=== PATIENT | female | born 1950 | race Caucasian/White ===

== ENCOUNTER → 2018-10-06 08:21 | Outpatient (CLI) | payer OTHER, SELFPAY ==
--- NOTE | 2018-10-06 | DI.MG.S_ITS ---
BILATERAL DIGITAL DIAGNOSTIC MAMMOGRAM 3D/2D: 10/06/2018 CLINICAL: Short term follow up. Family history of breast cancer. Comparison is made to exams dated: 03/20/2018 mammogram, 08/07/2017 mammogram, 07/23/2017 mammogram, and 07/19/2016 mammogram - [facility]. The tissue of both breasts is heterogeneously dense. This may lower the sensitivity of mammography. There is an asymmetry in the left breast posterior depth inferior region seen on the mediolateral oblique view only which is less prominent on additional views. No other significant masses, calcifications, or other findings are seen in either breast. IMPRESSION: PROBABLY BENIGN The asymmetry in the left breast is probably benign. A follow-up mammogram in 12 months is recommended. This exam was interpreted at Station ID: [id number]. NOTE: For mammograms, a report in lay terms will be sent to the patient. Approximately 15% of breast malignancies will not be visualized mammographically. In the management of a palpable breast mass, a negative mammogram must not discourage biopsy of a clinically suspicious lesion. SUMMARY: The patient will be due for her bilateral mammogram at that time. Electronically Signed By: Paige franco/:10/06/2018 09:27:08 letter sent: Followup Recommended ACR BI-RADS Category 3: Probably benign 3343F
== END ==
PROVIDERS: PCP Nurse Practitioner Family; Visit Provider Nurse Practitioner Family
DX: R92.8 Other abnormal and inconclusive findings on diagnostic imaging of breast (principal); N64.89 Other specified disorders of breast; Z80.3 Family history of malignant neoplasm of breast
CPT/HCPCS: 77066; G0279

== ENCOUNTER → 2021-01-17 08:18 | Outpatient (CLI) | payer MEDICARE, SELFPAY ==
--- NOTE | 2021-01-17 08:26 | DIET.PN ---
Dietary Progress Note Assessment: 70y F referred to nutrition for help with dietary management of preDM and HLD, attending appt c spouse. 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, healthy fats) Usual Day: wakes 5am to have some down time before her busy day has cup or two max of decaf coffee c half and half breakfast: has difficult time figuring out good options, likes oranges, pomagranate, sometimes oatmeal breaks are too short until lunch Lunch: hummus c red pepper, tostito chips, LF string cheese, orange, if chicken will have dry on tayo's cooks all meat on grill-chicken breast and thigh on grill c big salad (lettuce, carrot, apple, broccoli, poppyseed dressing) has popcorn in canola oil milk chocolate fan occasionally rum and pepsi, 5oz white wine RD Impression: Pt is overall healthy individual who is motivated to adjust her dietary patterns to manage her preDM and HLD. Pt seems to backload her diet with little intake during the first half of the day with television watching triggering evening snacking including moderate etoh use (<8 eq/w, some mixed c Pepsi), milk chocolate. Pt has an active job on her feet and does use the elliptical at home, but feels she can be more intentional with her exercise. Pts is actively losing weight using [employer]. Nutrition Diagnosis: 1. insufficient intake dietary fiber r/t nutrition related knowledge deficit aeb pt has HLD c LDL 153 despite eating low saturated fat diet, pt is preDM c A1c 5.9, food recall shows low to moderate soluble fiber intake. 2. altered nutrition related laboratory values (A1c) r/t endocrine dysfunction aeb A1c 5.9, pt not aware of carb content of foods, pt not getting 150 min physical activity per week. Interventions: 1. Educated pt on progression towards DM including what BG and A1c are and how food and activity affect the numbers. Encouraged pt to get 150min physical activity per week and follow consistent carbohydrate diet. 2. Introduced pt to carbohydrate consistent diet with goal of most meals 30g and most snacks 15-30g CHO. Provided handout. Encouraged pt to get familiar c carb counting but to mostly follow balanced plate model. Pt instructed on counting potato, peas, corn, etoh, and sweets in carb category and to keep this 1/4 of total intake for any meal. 3. Because pt has irregular meal timing, introduced pt to the hunger scale which will help her better place meals and snacks within the day as well as curb some of the evening snacking. Encouraged pt to brew tea in the evening for a calorie free, hydrating snack. 4. Educated pt on added sugar in the diet. If pt is having a Pepsi mixed drink, she must be careful to not overconsume carbs at the same meal. Pt can consume up to 25g added sugar daily. 5. To manage her HLD and lower LDL, pt will track fiber intake and aim to get 25g per day focusing on soluble fiber foods such as beans and berries which she does enjoy. Provided pt handout to support her efforts. Monitoring/Evaluations: pt will call RD with any questions or to schedule f/u
== END ==
PROVIDERS: PCP Nurse Practitioner Family; Referring Provider Internal Medicine; Visit Provider Internal Medicine
DX: R73.03 Prediabetes (principal); E78.5 Hyperlipidemia, unspecified; Z68.22 Body mass index [BMI] 22.0-22.9, adult; Z71.3 Dietary counseling and surveillance
CPT/HCPCS: 97802

== ENCOUNTER → 2021-06-07 09:26 | Outpatient (CLI) | payer MEDICARE, SELFPAY | PROVIDERS: PCP Internal Medicine; Referring Provider Internal Medicine; Visit Provider Internal Medicine | DX: M81.0 Age-related osteoporosis without current pathological fracture (principal); Z78.0 Asymptomatic menopausal state | CPT/HCPCS: 77080 ==

== ENCOUNTER → 2021-09-23 14:46 | Outpatient (CLI) | payer MEDICARE, SELFPAY ==
--- NOTE | 2021-09-23 14:48 | DI.MG.S_ITS ---
BILATERAL DIGITAL SCREENING MAMMOGRAM 3D/2D WITH CAD: 09/23/2021 CLINICAL: Routine screening. Comparison is made to exams dated: 10/06/2018 mammogram - [facility], 07/23/2017 mammogram, and 07/19/2016 mammogram - [facility]. The tissue of both breasts is heterogeneously dense. This may lower the sensitivity of mammography. Current study was also evaluated with a Computer Aided Detection (CAD) system. No significant masses, calcifications, or other findings are seen in either breast. There has been no significant interval change. IMPRESSION: NEGATIVE There is no mammographic evidence of malignancy. A 1 year screening mammogram is recommended. This exam was interpreted at Station ID: [id number]. NOTE: For mammograms, a report in lay terms will be sent to the patient. Approximately 15% of breast malignancies will not be visualized mammographically. In the management of a palpable breast mass, a negative mammogram must not discourage biopsy of a clinically suspicious lesion. Electronically Signed By: Evonne ortiz/kim:09/25/2021 10:26:46 letter sent: Normal Exam ACR BI-RADS Category 1: Negative 3341F
== END ==
PROVIDERS: PCP Internal Medicine; Referring Provider Internal Medicine; Visit Provider Internal Medicine
DX: Z12.31 Encounter for screening mammogram for malignant neoplasm of breast (principal)
CPT/HCPCS: 77063; 77067

== ENCOUNTER → 2022-09-25 09:00 | Outpatient (CLI) | payer MEDICARE, SELFPAY ==
--- NOTE | 2022-09-25 09:02 | DI.MG.S_ITS ---
BILATERAL DIGITAL SCREENING MAMMOGRAM 3D/2D WITH CAD: 09/25/2022 CLINICAL: Routine screening. Comparison is made to exams dated: 09/23/2021 mammogram, 10/06/2018 mammogram - [facility], and 07/23/2017 mammogram - [facility]. Both breasts are heterogeneously dense, which may obscure small masses (category c / 51-75% glandular tissue). Current study was also evaluated with a Computer Aided Detection (CAD) system. No significant masses, calcifications, or other findings are seen in either breast. There has been no significant interval change. IMPRESSION: NEGATIVE There is no mammographic evidence of malignancy. A 1 year screening mammogram is recommended. Based on the Tyrer Cuzick model (a risk assessment model) the patient's lifetime risk is 5.7% and her 10 year risk is 3.9%. According to the ACR, ACS, and NCCN guidelines, an annual breast MRI exam along with mammogram is recommended if the patient's lifetime risk is 20% or greater. This exam was interpreted at Station ID: [id number]. NOTE: For mammograms, a report in lay terms will be sent to the patient. Approximately 15% of breast malignancies will not be visualized mammographically. In the management of a palpable breast mass, a negative mammogram must not discourage biopsy of a clinically suspicious lesion. Electronically Signed By: Paige franco/kim:09/26/2022 12:15:32 letter sent: Normal Exam ACR BI-RADS Category 1: Negative 3341F
== END ==
PROVIDERS: PCP Internal Medicine; Referring Provider Internal Medicine; Visit Provider Internal Medicine
DX: Z12.31 Encounter for screening mammogram for malignant neoplasm of breast (principal)
CPT/HCPCS: 77063; 77067

== ENCOUNTER → 2023-08-26 10:52 | Outpatient (CLI) | payer MEDICARE, OTHER, SELFPAY ==
--- NOTE | 2023-08-26 | DI.RAD.S_ITS ---
Bone Density Report Name: DK NEVAREZ Age: 72 Sex: Female Ethnicity: White Date of : 1950 Indication: postmenopausal osteoporosis; Referring Provider: MEGHA SOTO Study: Bone densitometry was performed. Exam Date: August 26, 2023 Accession number: [id number] Bone Density: Region BMD T-score Z-score Classification AP Spine(L1-L4) 0.659 -3.5 -1.3 Osteoporosis Femoral Neck (Left) 0.605 -2.2 -0.3 Osteopenia Total Hip (Left) 0.775 -1.4 0.2 Osteopenia Femoral Neck (Right) 0.589 -2.3 -0.4 Osteopenia Total Hip (Right) 0.721 -1.8 -0.2 Osteopenia Total Hip Mean 0.748 -1.6 0.0 Osteopenia World Health Organization criteria for BMD impression classify patients as: Normal (T-score at or above -1.0), Osteopenia (T-score between -1.0 and -2.5), or Osteoporosis (T-score at or below -2.5). 10-year Fracture Risk: FRAX not reported because: Some T-score for Spine Total or Hip Total or Femoral Neck at or below -2.5 Previous Exams: -- Region Exam Age BMD T-score BMD Change BMD Change Date g/cm2 vs Baseline vs Previous -- AP Spine (L1-L4) 08/26/2023 72 0.659 -3.5 -0.052 (-7.4%)# -0.052 (-7.4%)# 06/07/2021 70 0.712 -3.0 Total Hip(Left) 08/26/2023 72 0.775 -1.4 -0.009 (-1.2%)# -0.009 (-1.2%)# 06/07/2021 70 0.785 -1.3 Total Hip(Right) 08/26/2023 72 0.721 -1.8 -0.041 (-5.4%)# -0.041 (-5.4%)# 06/07/2021 70 0.762 -1.5 -- *Denotes significance at 95% confidence level, LSC for AP Spine = 0.022 g/cm2, LSC for Total Hip = 0.027 g/cm2 # Denotes dissimilar scan types or analysis methods Impression: The patient has osteoporosis, based on the Total Spine T-score. No significant bone loss was observed. Discussion: INCREASED RISK OF FRACTURE. BONE DENSITY IS UNDESIRABLY LOW AT ONE OR MORE SKELETAL SITES, CONSISTENT WITH POSTMENOPAUSAL OSTEOPOROSIS. This patient's lowest T-score meets the World Health Organization's (WHO) criteria for osteoporosis at one or more sites (T-score -2.5 or below). In untreated patients, the risk of osteoporotic fracture increases approximately two-fold for each 1.0 SD decrease in T-score. Low bone density is not the only risk factor for fracture; also consider factors such as patient's age, frailty or poor health, risk of falling, risk of injury, previous osteoporotic fracture, family history of osteoporosis, cigarette smoking, low body weight, etc. Not everyone with low bone mineral density has osteoporosis; osteomalacia and other metabolic bone disorders should also be considered. Patients who have osteoporosis should be evaluated for specific diseases and conditions (secondary causes) that may cause or contribute to bone loss. The [place] Association of Clinical Endocrinologists (AACE) and National Osteoporosis Foundation (NOF) recommend pharmacologic intervention for all postmenopausal women whose T-score is in this range. The patient should follow a healthful lifestyle (good nutrition with adequate calcium and vitamin D, and appropriate weight-bearing exercise). Follow-Up: Consider a repeat BMD and Vertebral Fracture Assessment (VFA) exam in 2 years or sooner if medically necessary, to reassess this patient's status. Reported by: STELLA MENDOZA M.D. on 08/30/2023 11:27:00 AM.
== END ==
PROVIDERS: PCP Internal Medicine; Referring Provider Internal Medicine; Visit Provider Internal Medicine
DX: M81.0 Age-related osteoporosis without current pathological fracture (principal); Z78.0 Asymptomatic menopausal state
CPT/HCPCS: 77080

== ENCOUNTER → 2023-12-16 08:04 | Outpatient (CLI) | payer MEDICARE, OTHER, SELFPAY ==
--- NOTE | 2023-12-16 08:06 | DI.MG.S_ITS ---
BILATERAL DIGITAL SCREENING MAMMOGRAM 3D/2D WITH CAD: 12/16/2023 CLINICAL: Routine screening. Comparison is made to exams dated: 09/25/2022 mammogram, 09/23/2021 mammogram, and 10/06/2018 mammogram - [facility]. Both breasts are heterogeneously dense, which may obscure small masses (category c / 51-75% glandular tissue). Current study was also evaluated with a Computer Aided Detection (CAD) system. No significant masses, calcifications, or other findings are seen in either breast. There has been no significant interval change. IMPRESSION: NEGATIVE There is no mammographic evidence of malignancy. A 1 year screening mammogram is recommended. Based on the Tyrer Cuzick model (a risk assessment model) the patient's lifetime risk is 5.4% and her 10 year risk is 4.0%. According to the ACR, ACS, and NCCN guidelines, an annual breast MRI exam along with mammogram is recommended if the patient's lifetime risk is 20% or greater. This exam was interpreted at Station ID: [id number]. NOTE: For mammograms, a report in lay terms will be sent to the patient. Approximately 15% of breast malignancies will not be visualized mammographically. In the management of a palpable breast mass, a negative mammogram must not discourage biopsy of a clinically suspicious lesion. Electronically Signed By: Evonne ortiz/kim:12/16/2023 10:26:11 letter sent: Normal Exam ACR BI-RADS Category 1: Negative 3341F
== END ==
PROVIDERS: PCP Internal Medicine; Referring Provider Internal Medicine; Visit Provider Internal Medicine
DX: Z12.31 Encounter for screening mammogram for malignant neoplasm of breast (principal); R92.333 Mammographic heterogeneous density, bilateral breasts
CPT/HCPCS: 77063; 77067

== ENCOUNTER → 2025-01-14 14:54 | Outpatient (CLI) | payer MEDICARE, OTHER, SELFPAY ==
--- NOTE | 2025-01-14 14:55 | DI.RAD.S_ITS ---
PROCEDURE: XR DEXA AXIAL SKELETON INDICATIONS: OSTEOPOROSIS COMPARISON: [facility], CR, XR DEXA AXIAL SKELETON, 08/26/2023, 11:05. [facility], CR, XR DEXA AXIAL SKELETON, 06/07/2021, 9:58. FINDINGS: Lumbar Spine: Bone mineral density 0.799 g/cm2, T score -2.3, previously -3.5. The lowest T-scores are -2.5 and -2.5 for the L1 and L3 vertebral bodies. Left Femoral Neck: Bone mineral density 0.645 g/cm2, T score -1.8. Left Hip: Bone mineral density 0.757 g/cm2, T score -1.5, previously -1.4. Fracture Risk Calculation (when applicable): 10-year fracture risk of a major osteoporotic fracture 11 percent and of a hip fracture 24 percent. (T score greater or equal to -1.0 to: NORMAL) (T score from -1.1 to -2.4: OSTEOPENIA) (T score less than or equal to -2.5: OSTEOPOROSIS) IMPRESSION: 1. Osteopenia of the lumbar spine, although approaching osteoporosis. 2. Osteopenia of the left hip and femoral neck. Follow-up guidelines as follows: Osteoporosis: Consider a repeat DEXA and Vertebral Fracture Assessment (VFA) exam in 2 years or sooner if medically necessary, to reassess this patient's status. Osteopenia: Consider a repeat DEXA in 2-3 years to reassess this patient's status, or if there is a new clinical indication. Normal: Consider a repeat DEXA in 5 years or sooner, or if there is a new clinical indication. All treatment decisions require clinical judgment and consideration of individual patient factors, including patient preferences, comorbidities, previous drug use, risk factors not captured in the FRAX model (e.g., frailty, falls, vitamin D deficiency, increased bone turnover, interval significant decline in bone density ) and possible under- or over-estimation of fracture risk by FRAX. In addition, the NOF Guide recommends that FDA-approved medical therapies be considered in postmenopausal women and men age >= 50 years with a: * Hip or vertebral (clinical or morphometric) fracture * T-score of <=-2.5 at the spine or hip * Ten-year fracture probability by FRAX of >= 3% for hip fracture or >=20% for major osteoporotic fracture. Dictated by: Ovidio Hughes M.D. on 01/14/2025 at 17:04 Approved by: Ovidio Hughes M.D. on 01/14/2025 at 17:06
--- NOTE | 2025-01-14 14:55 | DI.MG.S_ITS ---
BILATERAL DIGITAL SCREENING MAMMOGRAM 3D/2D WITH CAD: 01/14/2025 CLINICAL: Routine screening. Comparison is made to exams dated: 12/16/2023 mammogram, 09/25/2022 mammogram, and 09/23/2021 mammogram - [facility]. The breasts are heterogeneously dense, which may obscure small masses (category c / 51-75% glandular tissue). Current study was also evaluated with a Computer Aided Detection (CAD) system. No significant masses, calcifications, or other findings are seen in either breast. There has been no significant interval change. IMPRESSION: NEGATIVE There is no mammographic evidence of malignancy. A 1 year screening mammogram is recommended. Based on the Tyrer Cuzick model (a risk assessment model) the patient's lifetime risk is 5.1% and her 10 year risk is 4.1%. According to the ACR, ACS, and NCCN guidelines, an annual breast MRI exam along with mammogram is recommended if the patient's lifetime risk is 20% or greater. This exam was interpreted at Station ID: [id number]. NOTE: For mammograms, a report in lay terms will be sent to the patient. Approximately 15% of breast malignancies will not be visualized mammographically. In the management of a palpable breast mass, a negative mammogram must not discourage biopsy of a clinically suspicious lesion. Electronically Signed By: Liam carmichael/kim:01/16/2025 14:29:22 letter sent: Normal Exam ACR BI-RADS Category 1: Negative
== END ==
PROVIDERS: PCP Registered Nurse; Referring Provider Registered Nurse; Visit Provider Registered Nurse
DX: M81.0 Age-related osteoporosis without current pathological fracture (principal); Z12.31 Encounter for screening mammogram for malignant neoplasm of breast; R92.333 Mammographic heterogeneous density, bilateral breasts
CPT/HCPCS: 77063; 77067; 77080

== ENCOUNTER 2025-10-14 12:57 | Day surgery (SDC) | payer MEDICARE, OTHER, SELFPAY ==
--- NOTE | 2025-10-14 06:49 | P.HP_ITS ---
History of Present Illness History of Present Illness Date Patient Seen: 10/14/25 Chief complaint: Screening Colonoscopy Narrative: Presents for screening colonoscopy today. +FH Meds Home Medications and Allergies Home Medications ?Medication ?Instructions ?Recorded ?Confirmed ?Type sodium,potassium,mag sulfates 17.5 See Rx Instructions PO .COMPLEX 10/12/25 Rx gram-3.13 gram-1.6 gram oral soln #354 mL (Suprep Bowel Prep Kit) Allergies Allergy/AdvReac Type Severity Reaction Status Date / Time ibuprofen Allergy Verified 02/15/25 10:10 Exam Narrative Exam Narrative: Const General: healthy appearing, comfortable and no acute distress Orientation: alert and oriented x3 HENMT Ears: hearing grossly normal bilaterally Eyes Visual Jacobsen: normal visual jacobsen by confrontation Conjunctivae: conjunctivae normal Sclera: sclerae normal EOM: EOM intact bilaterally Resp Effort & Inspection: normal respiratory effort and able to speak in complete sentences Cardio Rate: regular rate GI Palpation: soft (NT) Extrem General: no pedal edema and no calf tenderness Assessment & Plan Assessment and plan (1) Encounter for screening colonoscopy: Status: Acute Plan Plan colonoscopy, possible biopsy. The risks, benefits and options regarding the procedure were explained to the patient in detail. Risk discussion included but not limited to: bleeding, perforation, unable to reach cecum, missed lesion. The patient was encouraged to ask questions and they were answered to their satisfaction. The patient understands and is agreeable to proceed. Time-Based Coding :: [TOTAL MINUTES] spent with patient and on the chart (including review of chart, obtaining history, exam, reviewing outside data, placing orders, documenting exam and treatment plan, and counseling patient) on [DATE]. [employer] Designer Document charge(s): Yes Charge Codes Inpatient/observation care including admit and discharge same day: [id number]
[2025-10-14 13:25] VITALS: BP 130/58; PULSE 58; RESP 16; TEMP 36.2; O2SAT 98
[2025-10-14] MEDS: LACTATED RINGERS 1,000 ML 42 ML IV (13:36)
--- NOTE | 2025-10-14 13:39 | PM.OP.COLON ---
Operative Date/Time/Diagnoses Date of procedure: 10/14/25 Time of procedure: 14:30 Pre-op diagnosis: Screening colonoscopy Post-op diagnosis: same Procedure & Clinicians Study performed: Screening colonoscopy Same procedure(s) as scheduled: Yes Indications: 75yo F, screening colonoscopy Surgeon: Hilario Guerra Anesthesia Type: MAC +/- Procedure Notes SCOAP/Timeout: Performed Procedure in detail: Colonoscopy Patient placed in left lateral recumbent position. Time out was performed. Procedural sedation was administered by anesthesia. Examination began with a thorough inspection of the perianal area. There was no evidence of fissures, fistulae, external hemorrhoids or cutaneous malignancy. The colonoscope was then placed into the rectum and the lumen was insufflated with carbon dioxide. The scope was carefully advanced forward. Ultimately the cecum was intubated and confirmed by identification of the ileocecal valve, the appendiceal orifice and the confluence of the taenia. The scope was then slowly withdrawn examining the colon thoroughly in all directions. In the rectum, retroflexion of the scope was performed for inspection of the distal rectum and anal canal. ?Significant colonoscopy findings: ?1. Quality of the preparation-good, [place] 2-3, improved with irrigation/suction ?2. Single 2mm sessile, benign appearing polyp at 50cm descending colon. It was removed with cold snare but could not be retrieved for pathology, could not be located after polypectomy, I anticipate pathology would be hyperplastic, clinically. Scope withdrawal time: 7 minutes Findings: polyp(s) Specimen(s): none sent Estimated Blood Loss: 5 Complications: none Impression: Single descending polyp, benign appearing Post-procedure Recommendations: Colonoscopy in 10 years Plan for aftercare: PACU then home Follow up: as needed Disposition: PACU
[2025-10-14 14:30] VITALS: BP 112/60; PULSE 55; RESP 19; TEMP 36.4; O2SAT 96
[2025-10-14 14:38] VITALS: BP 117/59; PULSE 50; RESP 22; O2SAT 97
[2025-10-14 14:42] VITALS: BP 118/61; PULSE 50; RESP 18; O2SAT 99
[2025-10-14 14:49] VITALS: BP 131/63; PULSE 55; RESP 21; TEMP 36.6; O2SAT 98
== END 2025-10-14 15:01 | disposition home or self-care (01) ==
PROVIDERS: PCP Registered Nurse; Referring Provider Surgery; Visit Provider Surgery
PROC: 0DJD8ZZ Inspection of Lower Intestinal Tract, Via Natural or Artificial Opening Endoscopic (ICD-10-PCS; CPT 45378; principal; 2025-10-14 14:00)
DX: Z12.11 Encounter for screening for malignant neoplasm of colon (principal); K63.5 Polyp of colon
CPT/HCPCS: 45385; J2704; J7120